=== PATIENT | female | born 1940 | race African-American/Black ===

== ENCOUNTER → 2017-03-18 | Outpatient (CLI) | payer OTHER, BC ==
[~2017-03-18] VITALS: Ht 157.5 cm; Wt 127.0 kg
[~2017-03-18] MED LIST: ATIVAN0.5 MG PO; FIORICET 50-301 EACH PO; FLEXERIL PO; GABAPENTIN 100100 MG PO; GABAPENTIN PO; GABAPENTIN100 MG PO; GABAPENTIN300 MG PO; HYDROCODON-ACE1 EAC5 PO; HYDROCODONE-AC120 ML PO; MECLIZINE 25 MG25 M1 PO; MEDROLDOSEPACK PO; NEURONTIN 300300 M1 PO; NORVASC 5 MG TAB5 MG PO; NORVASC10 MG PO; PREVACID 30MG C30 M1 PO; TRAMADOL 50 MG50 MG PO; VICODIN 5-5001 EACH PO; XARELTO15 MG PO; XARELTO20 MG PO; gabapentin PO
--- NOTE | ~2017-03-18 | HPC ---
[facility] [place] [address] [place] [address] PAIN MANAGEMENT CONSULTATION Name: TYSON SOLARES Room #: REG [facility].#: [id number] Admission: 03/18/17 Attend Phys: Allen Carlos MD Discharge: Date of : 42 Report #: [id number] THIS REPORT FOR: //name// CC: Boris Marti MD DATE OF SERVICE: 03/18/2017 FOLLOWUP COMPLAINT: Things are going pretty well. FOLLOWUP HISTORY: The patient is a very pleasant 76-year-old female who has been followed in the pain clinic because of lumbar radiculopathy. She finds that gabapentin is quite amazing medication. It helps her pain significantly. She has returned today for renewal of her medication. She rates her pain as a 5/10 at this juncture. She is experiencing pain down in both legs and in the lower back. She also has some left shoulder and right knee discomfort. She has had some medical problems since we have seen her last. She has not fallen. She has had her gallbladder removal. IMPRESSION: 1. Lumbar radiculopathy, improved with gabapentin 100 mg 1 p.o. t.i.d. 2. Obesity. Height 157 cm, weight 127 kilograms. BMI is 51. RECOMMENDATIONS: We discussed treatment options with the patient. We will continue with her use of gabapentin 100 mg 1 p.o. t.i.d. A script for these medications have been written. She will call us if she has any problems with her medications. We would like to thank you for letting us participate in her care. We hope she continues to improve. <ELECTRONICALLY SIGNED> By: Allen Carlos MD 03/25/17 0829 1219 1601 Allen Carlos MD /nt
[2017-03-18 11:27] VITALS: BP 150/76
== END | disposition home or self-care (01) ==
LOC: PAIN 10:52
DX: M54.16 Radiculopathy, lumbar region (principal); E66.9 Obesity, unspecified

== ENCOUNTER → 2017-08-19 | Outpatient (CLI) | payer OTHER, BC ==
[~2017-08-19] VITALS: Ht 157.5 cm; Wt 124.7 kg
--- NOTE | ~2017-08-19 | HPC ---
[facility] [place] [address] PAIN MANAGEMENT CONSULTATION Name: TYSON SOLARES Room #: REG [facility].#: [id number] Admission: 08/19/17 Attend Phys: Allen Carlos MD Discharge: Date of : 42 Report #: [id number] THIS REPORT FOR: //name// CC: Boris Marti MD DATE OF SERVICE: 08/19/2017 FOLLOWUP COMPLAINT: "I would like to get my medicines renewed and it still working well." FOLLOWUP HISTORY: The patient is a 76-year-old female who has been seen in the Pain Clinic because of lumbar radiculopathy. She is quite happy with the gabapentin. She finds that this medication is still helpful with decreasing her pain. She has had no complications from the medication. She would like to continue its use. She has had no complications with bowel or bladder dysfunction. She has not fallen since we saw her last. PHYSICAL EXAMINATION: Blood pressure 168/67, pulse 66, respiratory rate 18, room air saturation is 99%. Height 5 feet 2 inches, weight 275 pounds, BMI is 50. The patient has pain and discomfort, which radiates down into the posterior portion of her legs and has some low back pain. She has pain in her right knee. Notes increased pain and discomfort with walking, standing and prolonged sitting. IMPRESSION: 1. Lumbar radiculopathy, which has improved and helped significant weight with gabapentin 100 mg 1 p.o. t.i.d. 2. Obesity. BMI is 50. RECOMMENDATIONS: We will continue with the patient's current medical regimen. A script for gabapentin 100 mg 1 p.o. t.i.d. has been written. The patient will follow up in the near future. She will call us if she has any problems with her medications. We would like to thank you for letting us participate in her care. We hope she continues to improve. By: 1609 0357 Allen Carlos MD /CHAPARRO
[2017-08-19 10:17] VITALS: BP 168/67
== END | disposition home or self-care (01) ==
LOC: PAIN 07:18
DX: Z76.0 Encounter for issue of repeat prescription (principal); M54.16 Radiculopathy, lumbar region; G89.29 Other chronic pain; E66.09 Other obesity due to excess calories; Z68.43 Body mass index [BMI] 50.0-59.9, adult; Z88.2 Allergy status to sulfonamides; Z88.6 Allergy status to analgesic agent; Z88.8 Allergy status to other drugs, medicaments and biological substances; Z79.899 Other long term (current) drug therapy

== ENCOUNTER → 2018-01-16 | Outpatient (CLI) | payer OTHER, BC ==
[~2018-01-16] MED LIST changes: +FOSAMAX 70 MG T70 MG PO; +PHENERGAN 25 MG25 M1 PO; +PRED FORTE 1% EY5 M1 OPHTHALMIC; +PREVACID30 MG PO
== END ==
LOC: CAT 10:48
DX: H53.9 Unspecified visual disturbance (principal); R51 Headache; R53.1 Weakness

== ENCOUNTER → 2018-02-16 | Outpatient (CLI) | payer OTHER, BC ==
[~2018-02-16] MED LIST changes: -FOSAMAX 70 MG T70 MG PO; -PHENERGAN 25 MG25 M1 PO; -PRED FORTE 1% EY5 M1 OPHTHALMIC; -PREVACID30 MG PO
== END ==
LOC: RAD 13:42
DX: R06.00 Dyspnea, unspecified (principal)

== ENCOUNTER → 2018-02-22 | Outpatient (CLI) | payer OTHER, BC ==
[~2018-02-22] VITALS: Ht 157.5 cm; Wt 120.9 kg
--- NOTE | ~2018-02-22 | HPC ---
[facility] [place] [address] [address] [place] [address] PAIN MANAGEMENT CONSULTATION Name: TYSON SOLARES Room #: REG [facility]..#: [id number] Admission: 02/22/18 Attend Phys: Allen Carlos MD Discharge: Date of : 42 Report #: [id number] THIS REPORT FOR: //name// CC: Boris Marti MD DATE OF SERVICE: 02/22/2018 FOLLOWUP COMPLAINT: Here for medication renewal. FOLLOWUP HISTORY: The patient is a 77-year-old female who has been followed in the pain clinic for some time. She has pain and discomfort in the lower back area as well as noted some pain and discomfort in the upper shoulder area. Finds that the use of gabapentin over the years has been quite efficacious. She has noted some worsening of pain and discomfort in both shoulders. She has had the worst discomfort in the left shoulder. She has had no surgery in this area. Feels that maybe injections in the past have been beneficial and feels that that might be needed in the near future because of this. ALLERGIES: PROCAINAMIDE SULFA, CAFFEINE CAUSES HEART ARRHYTHMIAS. CURRENT MEDICATIONS: 1. Gabapentin 100 mg t.i.d. 2. Xarelto 20 mg at dinner. 3. Meclizine 25 mg p.r.n. 4. Prevacid 30 mg capsules daily. 5. Amlodipine/Norvasc 5 mg daily. 6. Ativan 0.5 mg b.i.d. PAIN CLINIC ASSESSMENT: 1. 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 2. Height 5 feet 2 inches, weight 266 pounds, BMI is 48. 3. VITAL SIGNS: Blood pressure 163/79, pulse 59, respiratory rate 14, room air saturation is 100%. 4. Pain intensity is 0 at this juncture with some activity levels. Notes increased pain and discomfort involving her left shoulder, which is problematic and noticing decreasing range of motion. 5. Fall risk. The patient has not fallen in the last 3 months, but does need some assistance with walking and uses a cane. 6. Blood thinner. The patient is on Xarelto. 7. History of hypertension. 8. Opioid therapy, use over the last 6 weeks. The patient is not using opioid medication. 9. Risk assessment, low at 11/28 for opioid medication. [address] [address] PAIN MANAGEMENT CONSULTATION Name: TYSON SOLARES [id number] Admission: 02/22/18 Attend Phys: Allen Carlos MD Discharge: Date of : 42 Report #: [id number] 10. Functional assessment tool, which shows moderate problems with her pain during the course of her daily living. 11. Recreational drug use. Never used recreational drugs. 12. Tobacco, never smoked cigarettes. 13. Alcohol. Denies frequent use of alcoholic beverages. PHYSICAL EXAMINATION: GENERAL: She is a well-developed black female. She appears her stated age. She is alert and oriented x 3. Affect is appropriate. Speech is smooth. She is accompanied by her daughter. HEENT: Normocephalic, atraumatic. Extraocular eye muscles intact. Hearing is within normal limits. Conjunctivae is clear. Mucous membranes are moist. NECK: Without adenopathy. HEART: Regular rate. ABDOMEN: Protuberant. MUSCULOSKELETAL: Upper extremity muscle strength is judged to be on the right 4+/5 and on the left 4+/5. Had some decreased range of motion in the left arm, raising this arm above the horizon with abduction is somewhat limited. The patient notes some pain and discomfort in this area. Lower extremities: The patient does have some pain and discomfort in the lumbar radicular area with certain activities. It is not problematic at this juncture and helped with use of gabapentin. IMPRESSION: 1. Lumbar radiculopathy, which improves with gabapentin. 2. Obesity, BMI is 48.7 down from 50 at the last visit. 3. Left arm pain and discomfort. RECOMMENDATIONS: We discussed treatment options with the patient. She states that she is having some pain and discomfort in the left arm. Has had some problems with rotator cuff in this area. The rotator cuff seems to be quite problematic. At this juncture, we will continue with a conservative approach. We may consider injecting the left shoulder/deltoid areas in the future for pain continues to be problematic. She will try a Medrol Dosepak. Hopefully, this medication would help some of the swelling and discomfort as well irritation she is experiencing in the left shoulder as she tries to increase her range of motion and activity level for that shoulder. A script for Medrol Dosepak and gabapentin 100 mg 1 p.o. t.i.d. have been written. A 5 refills were given for the gabapentin. She will call us if she has any problems. We would like to thank you for letting us participate in her care. We hope she continues to improve. By: 1712 0514 Allen Carlos MD /CHAPARRO
[2018-02-22 09:28] VITALS: BP 163/79
== END ==
LOC: PAIN 06:56
DX: M54.16 Radiculopathy, lumbar region (principal); E66.9 Obesity, unspecified; M79.602 Pain in left arm; Z68.42 Body mass index [BMI] 45.0-49.9, adult; Z88.4 Allergy status to anesthetic agent; Z88.2 Allergy status to sulfonamides; Z88.5 Allergy status to narcotic agent

== ENCOUNTER → 2018-03-08 | Outpatient (CLI) | payer OTHER, BC ==
[2018-03-11 13:56] LABS: T-SPOT.TB Negative
== END ==
LOC: RAD 09:04
PROVIDERS: Nurse Practitioner
DX: M47.894 Other spondylosis, thoracic region (principal); I27.20 Pulmonary hypertension, unspecified

== ENCOUNTER → 2018-03-20 | Outpatient (CLI) | payer OTHER, BC | LOC: ULTRA 10:27 | DX: M79.661 Pain in right lower leg (principal); M79.89 Other specified soft tissue disorders ==

== ENCOUNTER → 2018-03-23 | Outpatient (CLI) | payer OTHER, BC | LOC: NUC 06:31 | DX: M80.859 Other osteoporosis with current pathological fracture, unspecified femur (principal); Z78.0 Asymptomatic menopausal state ==

== ENCOUNTER 2018-08-03 09:50 | Observation (INO) | payer OTHER, BC ==
[2018-08-03] VITALS (11 sets, daily range): BP systolic 128–159; BP diastolic 54–80
--- NOTE | ~2018-08-03 | PATH ---
[facility] [address] [place] [address] PATHOLOGY RPT PROCEDURE Name: TYSON RENE Room #: 211-P [facility] Nadiya Hernandez#: [id number] Admission: 08/03/18 Date of : 42 Discharge: 08/03/18 Report #: [id number] Path Case #: [id number] [facility] Accession Number: [id number] . 01 Material submitted: . RIGHT FOCAL LIVER LESION . 01 Clinical history: . Right focal liver lesion . 02 Diagnosis: Liver, needle core biopsy: - Nodular liver parenchyma with multiple non-necrotizing and necrotizing granulomata associated with clusters of giant cells (please see comment). (IUV:gilmar; 08/08/2018) QMS/08/08/2018 . 02 Comment: Examination shows markedly expanded portal and periportal areas by extensive non-necrotizing and necrotizing granulomatous inflammation with clusters of giant cells. Occasional to rare giant cells show an inclusion. Few granulomata resemble "fibrin-ring" granulomas. Central expanded stellate areas of necrosis suggesting cat scratch disease are not identified. Bile ducts where present and available for examination appear uninvolved. The arteries and veins where present are uninvolved. The lobules show less than 2% macrovesicular steatosis. Mild sinusoidal congestion is present. Florid duct lesions are not present. . Acid fast bacillus and Gomori methenamine silver stains performed on block A1 are negative for mycobacterial as well as fungal elements, respectively. . Special stains are performed on block A1. Trichrome special stain shows extensive periportal fibrosis (stage II-III/IV). Reticulin stain shows an intact reticulum network where the lobules are intact. Iron stain is negative. PAS with and without show numerous Kupffer cells as well as no intracytoplasmic globules in zone 1. CD34 immunohistochemical stain performed on block A1 shows no increase in vascularity. . The differential diagnosis in the current case includes sarcoidosis, primary biliary cirrhosis, effects of medications (drugs), tuberculosis (including SAM), foreign material (mineral oil), Q fever, cat scratch disease, as well as parasitic organisms. Please correlate clinically and follow-up as indicated. (IUV:gilmar; 08/08/2018) . 02 Electronically signed: . Theodora Ascencio MD, [place] [address] PATHOLOGY RPT PROCEDURE Name: TYSON RENE Room #: 211-P [facility] Hernandez#: [id number] Admission: 08/03/18 Date of : 42 Discharge: 08/03/18 Report #: [id number] Path Case #: [id number] NPI- [id number] . 01 Gross description: . The specimen is received in formalin, labeled "Tyson Rene, liver-right". Received are five needle cores of orange-bruno soft tissue ranging in length from 0.4 to 2.7 cm, with each measuring 0.1 cm in length. The specimen is submitted entirely in cassettes A1 through A3. (CAA; 08/04/2018) QAC/QAC . 02 Pathologist provided ICD-10: K75.3, K76.9 . 02 CPT . 153441, 263914, 193059, 609301, 995039, 716479, 066629, 241815, J04804 Specimen Comment: A courtesy copy of this report has been sent to Specimen Comment: [phone], . Specimen Comment: Report sent to / DR MCGUIRE Performed at: [address] [facility], [place] [id number] MD Kingsley Waters MD Phone: [phone] Performed at: [address] [id number] MD Theodora Ascencio MD Phone: [phone]
[2018-08-03] MEDS ORDERED: FOSAMAX 70 MG T70 MG PO (11:29)
[2018-08-03 12:50] LABS: HEMATOCRIT 35.1 % (37.0-47.0); HEMOGLOBIN 11.6 gm/dL (12.0-15.0); MCH 28.2 pg (26.0-34.0); MCHC 32.9 g/dL (28.0-37.0); MCV 85.7 fL (80.0-100.0); RBC 4.1 mil/uL (4.20-5.00); WBC 2.5 thou/uL (4.0-11.0)
[2018-08-03 13:00] LABS: CALCIUM 9.3 mg/dL (8.5-10.1); CREATININE 0.9 mg/dL (0.6-1.0); POTASSIUM 3.8 mmol/L (3.5-5.1)
[2018-08-03 13:06] LABS: INR 1.1; PROTIME 10.9 Seconds (9.3-11.4)
== END 2018-08-03 18:52 | disposition home or self-care (01) ==
LOC: ULTRA 09:50 → 2N 15:57
PROVIDERS: Radiology Diagnostic Radiology
DX: K76.9 Liver disease, unspecified (principal); K75.3 Granulomatous hepatitis, not elsewhere classified; I10 Essential (primary) hypertension; I25.10 Atherosclerotic heart disease of native coronary artery without angina pectoris; I27.20 Pulmonary hypertension, unspecified; E66.9 Obesity, unspecified; K21.9 Gastro-esophageal reflux disease without esophagitis; G47.33 Obstructive sleep apnea (adult) (pediatric); F41.9 Anxiety disorder, unspecified; R51 Headache
CPT/HCPCS: 27001

== ENCOUNTER 2018-09-06 05:32 | Day surgery (SDC) | payer OTHER, BC ==
[~2018-09-06] VITALS: Ht 157.5 cm; Wt 116.6 kg
--- NOTE | ~2018-09-06 | H ---
[facility] [place] [address] [place] [address] HISTORY AND PHYSICAL Name: TYSON SOLARES Room #: 150-5 [facility]..#: [id number] Admission: 09/06/18 Attend Phys: James Brasher MD Discharge: Date of : 42 Report #: [id number] THIS REPORT FOR: //name// CC: Alex Brasher DATE OF SERVICE: 09/06/2018 DATE OF SURGERY: 09/06/2018 HISTORY OF PRESENT ILLNESS: This patient is a 77-year-old female, 3, para 2, AB 1. She is a patient of Dr. Alex Marti who referred the patient to Dr. Brasher for further evaluation of low density changes in the upper central uterus on CT scan requiring endometrial evaluation. These abnormalities were found on 06/28/2018 posing a concern for endometrial tumor or retained fluid in the upper uterine area. An endometrial biopsy was attempted in the office by Dr. Brasher, but was unsuccessful due to cervical stenosis. She is now admitted for an outpatient D and C, hysteroscopy. The patient has multiple medical problems including coronary artery disease, hypertension, mitral valve prolapse, obstructive sleep apnea, sarcoidosis, pulmonary hypertension and history of a saddle pulmonary embolus. She is being treated with Xarelto anticoagulation. This was to have been discontinued 5 days prior to surgery as per Dr. Alex Marti's recommendation and is to be restarted 2 days after the surgery. PAST MEDICAL HISTORY: ALLERGIES: PROCAINE, MORPHINE, PROCAINAMIDE, SULFA ANTIBIOTICS. MEDICATIONS: Amlodipine, also known as Norvasc 5 mg tablets; Lotrisone vaginal cream to affected area twice a day; gabapentin 100 mg p.o. t.i.d.; lansoprazole 30 mg p.o. daily; lorazepam 0.5 mg p.o. b.i.d.; meclizine 25 mg p.o. p.r.n.; prednisolone acetate eyedrops q.a.m. Tuesday through Tuesday; Xarelto 20 mg once daily with dinner. MEDICAL ILLNESSES AND DISEASES: Coronary artery disease, hypertension, mitral valve prolapse, obstructive sleep apnea, pulmonary hypertension, past history of saddle pulmonary embolus, sarcoidosis, uterine fibroid, vertigo, anxiety, MISSY positive, chronic headaches, GERD. PAST SURGICAL HISTORY: Cholecystectomy, herniorrhaphy, liver biopsy, mastoidectomy, total knee replacement. FAMILY HISTORY: Father with a myocardial infarction. Diabetes, hypertension and heart disease runs in the family. [address] [address] HISTORY AND PHYSICAL Name: TYSON SOLARES Room #: 150-5 [facility]#: [id number] Admission: 09/06/18 Attend Phys: James Brasher MD Discharge: Date of : 42 Report #: [id number] SOCIAL HISTORY: Never smoker. Denies alcohol use. REVIEW OF SYSTEMS: EYES: Wears glasses. PSYCHIATRIC: Denies depression. GENERAL: Denies any general symptoms of fatigue. Does admit to sleep apnea. RESPIRATORY: Denies any wheezing or coughing. CARDIAC: Denies any irregular heartbeats or chest pain. GASTROINTESTINAL: Denies any abdominal pain or distress. GENITOURINARY: Denies any burning when she urinates or blood in her urine. PHYSICAL EXAMINATION: VITAL SIGNS: Temperature 98.6, pulse 64, blood pressure 110/64, height 5 feet 1 inch tall, weight 265 pounds, body mass index is 50.07. GENERAL: The patient is pleasant, in no acute distress, but morbidly obese. HEENT: Head: Atraumatic. Eyes: Normal. Ears: Normal. NECK: Nontender. Full range of motion. LUNGS: Clear. HEART: Regular rhythm and rate. No murmurs. ABDOMEN: Soft, nontender, pendulous with a large pannus. SKIN: No petechiae or rashes. BACK: No midline or flank tenderness. EXTREMITIES: No edema. NEUROLOGIC: Awake and alert. PSYCHIATRIC: Normal mood and affect. GYNECOLOGIC: Vulva normal. Vagina normal with no masses, no lesions. Cervix parous, nontender. Uterus and adnexa are nontender and nonpalpable. ASSESSMENT: 1. Abnormal low density changes in the endometrial cavity of the uterus on CT scan requiring endometrial evaluation. 2. Cervical stenosis preventing endometrial biopsy. 3. Morbid obesity, past history of pulmonary embolus for which the patient receives anticoagulation with Xarelto. 4. Multiple medical problems including coronary artery disease, mitral valve prolapse, obstructive sleep apnea, sarcoidosis, pulmonary hypertension and a history of saddle pulmonary embolus and morbid obesity. PLAN: Dilation and curettage, hysteroscopy scheduled for 09/07/2018. The [address] [address] HISTORY AND PHYSICAL Name: TYSON SOLARES Room #: 150-5 [facility] M.R.#: [id number] Admission: 09/06/18 Attend Phys: James Brasher MD Discharge: Date of : 42 Report #: [id number] patient is to have discontinued Xarelto anticoagulation 5 days prior to surgery and we will restart it 2 days following surgery. <ELECTRONICALLY SIGNED> By: James Brasher MD 09/06/18 0742 1801 1837 James Brasher MD /nt
--- NOTE | ~2018-09-06 | O ---
[facility] [place] [place] [address] OPERATIVE REPORT Name: TYSON SOLARES Room #: DEP [facility]..#: [id number] Admission: 09/06/18 Attend Phys: James Brasher MD Discharge: 09/06/18 Date of : 42 Report #: [id number] THIS REPORT FOR: //name// CC: Alex Brasher DATE OF SERVICE: 09/06/2018 PREOPERATIVE DIAGNOSIS: Thickened endometrium. POSTOPERATIVE DIAGNOSIS: Thickened endometrium. PROCEDURE: Dilatation and curettage, hysteroscopy. SURGEON: James Brasher MD BLACK TOP RAKER: None. ANESTHESIA: General. ESTIMATED BLOOD LOSS: 5 mL. DRAINS: None. SPECIMEN: Endometrial curettings. FINDINGS: Exam under anesthesia was performed. Uterus and adnexa were nonpalpable due to abdominal girth. The hysteroscopic findings showed minimally thickened endometrium with no evidence of any endometrial submucosal fibroids or endometrial polyps. Curettings were scant on the curettage of the uterus. COMPLICATIONS: None. PROCEDURE: The patient was seen in preoperative holding area, where consent was obtained for surgery. The postoperative course was reviewed. The patient was reminded to restart Xarelto on postop day #1 if she is not having any bleeding from the surgery. She was then taken to the operating room, administered general anesthesia, prepped and draped in sterile fashion in dorsal lithotomy position. The patient is morbidly obese and pelvic exam was unable to palpate the uterus and adnexa. Speculum was placed in the vagina. Cervix was grasped using a single-tooth tenaculum along the anterior lip and hysteroscope could not be inserted past the internal os due to cervical stenosis. A uterine sound was passed and sounded the uterus to a depth of 7.5 cm. Dilators were used to dilate the endocervical canal until the hysteroscope could be inserted under direct hysteroscopic vision using saline distending medium. Hysteroscopic [facility] [address] [place] [address] OPERATIVE REPORT Name: TYSON SOLARES [place] Room #: [facility]#: [id number] Admission: 09/06/18 Attend Phys: James Brasher MD Discharge: 09/06/18 Date of : 42 Report #: [id number] findings were as dictated above. The hysteroscope was removed. The uterine cervix then dilated to #21 dilator. A smooth sharp curette was then used to obtain endometrial curettings in the entirety of the endometrial cavity. These curettings were scant and the hysteroscope was then reinserted and fluid was infused. There was no active bleeding in the endometrial cavity. The hysteroscope was then removed. The single-tooth tenaculum was then removed. Hemostasis was observed. The patient was then brought out of general anesthesia and taken to the recovery room with IV infusing well. She was to be discharged home directly from recovery room again with instructions to resume Xarelto the day following surgery if she is not bleeding vaginally. If she is bleeding vaginally, she is to call Dr. Brasher. By: 1115 1247 James Brasher MD /nt
--- NOTE | ~2018-09-06 | PATH ---
[facility] [place] [address] PATHOLOGY RPT PROCEDURE Name: TYSON RENE Room #: DEP [facility] M.R.#: [id number] Admission: 09/06/18 Date of : 44 Discharge: 09/06/18 Report #: [id number] Path Case #: [id number] [facility] Accession Number: [id number] . 01 Material submitted: . ENDOMETRIAL CURETTING . 01 Clinical history: . Endometrial disorder . 02 Diagnosis: Uterus, endometrial curetting: - Scant specimen procured. - Fragments of inactive (atrophic) endometrium with cystic change. - Negative for hyperplasia, atypia or malignancy within the endometrium. - Strips of benign ectocervical epithelium with no evidence of dysplasia. . (IUV:pit 09/07/2018) QTP/09/07/2018 . 02 Electronically signed: . Theodora Ascencio MD, Pathologist NPI- [id number] . 01 Gross description: . Received in formalin labeled "Tyson Rene, endometrial curettings," is blood-tinged mucoid material containing small fragments of bruno membranous tissue, measuring 0.3 x 0.2 x 0.1 cm in aggregate dimensions. The specimen is submitted entirely in cassette A1. (TSD; 09/06/2018) TOB/TOB . 02 Pathologist provided ICD-10: N85.8 . 02 CPT . 390698 Specimen Comment: A courtesy copy of this report has been sent to Specimen Comment: [phone], . Specimen Comment: Report sent to / DR STEIN Specimen Comment: A duplicate report has been generated due to demographic updates. Performed at: [address] [id number] MD Kingsley Waters MD Phone: [phone] Performed at: [address] [address] PATHOLOGY RPT PROCEDURE Name: TYSON RENE Room #: DEP [facility]..#: [id number] Admission: 09/06/18 Date of : 44 Discharge: 09/06/18 Report #: [id number] Path Case #: [id number] [address] [id number] MD Theodora Ascencio MD Phone: [phone]
[~2018-09-06 05:32] MED LIST changes: +FOSAMAX 70 MG T70 MG PO; +PRED FORTE 1% EY5 M1 OPHTHALMIC; +PREVACID30 MG PO
[2018-09-06 08:06] VITALS: BP 132/55
[2018-09-06 09:47] LABS: HEMATOCRIT 35.3 % (37.0-47.0); HEMOGLOBIN 11.7 gm/dL (12.0-15.0); MCH 28.9 pg (26.0-34.0); MCV 87.6 fL (80.0-100.0); RBC 4.03 mil/uL (4.20-5.00); RDW 15.3 % (10.5-14.5); WBC 3.4 thou/uL (4.0-11.0)
[2018-09-06 09:57] LABS: CALCIUM 9.2 mg/dL (8.5-10.1); CREATININE 0.9 mg/dL (0.6-1.0)
[2018-09-06 09:58] LABS: INR 1.1; PROTIME 11.1 Seconds (9.3-11.4)
[2018-09-06 10:02] LABS: ALBUMIN 2.8 g/dL (3.4-5.0); TOTAL BILIRUBIN 0.4 mg/dL (<0.1-1.0); TOTAL PROTEIN 7.7 g/dL (6.4-8.2)
[2018-09-06 11:13] VITALS: BP 132/55
== END 2018-09-06 11:48 | disposition home or self-care (01) ==
LOC: TBA 05:32 → OR 05:32
PROVIDERS: Student in an Organized Health Care Education/Training Program
DX: R93.89 Abnormal findings on diagnostic imaging of other specified body structures (principal); I25.10 Atherosclerotic heart disease of native coronary artery without angina pectoris; I10 Essential (primary) hypertension; I34.1 Nonrheumatic mitral (valve) prolapse; G47.33 Obstructive sleep apnea (adult) (pediatric); D86.9 Sarcoidosis, unspecified; I27.20 Pulmonary hypertension, unspecified; F41.9 Anxiety disorder, unspecified; K21.9 Gastro-esophageal reflux disease without esophagitis; E66.01 Morbid (severe) obesity due to excess calories; Z68.42 Body mass index [BMI] 45.0-49.9, adult; Z88.8 Allergy status to other drugs, medicaments and biological substances; Z88.1 Allergy status to other antibiotic agents; Z88.2 Allergy status to sulfonamides; Z79.899 Other long term (current) drug therapy; Z79.01 Long term (current) use of anticoagulants; Z90.49 Acquired absence of other specified parts of digestive tract; Z90.10 Acquired absence of unspecified breast and nipple; Z96.652 Presence of left artificial knee joint; Z82.49 Family history of ischemic heart disease and other diseases of the circulatory system; Z83.3 Family history of diabetes mellitus; Z98.42 Cataract extraction status, left eye; Z98.41 Cataract extraction status, right eye
CPT/HCPCS: 27000; 50010; 50101; 57160; 62110; 62900; 70005

== ENCOUNTER 2018-09-17 13:05 | Emergency (ER) | payer OTHER, BC ==
[~2018-09-17] VITALS: Ht 157.5 cm; Wt 117.5 kg
[2018-09-17] MEDS ORDERED: PHENERGAN 25 MG25 M1 PO (15:03)
[2018-09-17 15:24] VITALS: BP 149/59
== END 2018-09-17 15:25 | disposition home or self-care (01) ==
LOC: ER 13:05
DX: R51 Headache (principal); R11.0 Nausea; I10 Essential (primary) hypertension; I25.10 Atherosclerotic heart disease of native coronary artery without angina pectoris; K21.9 Gastro-esophageal reflux disease without esophagitis; G47.30 Sleep apnea, unspecified; Z96.652 Presence of left artificial knee joint; Z88.2 Allergy status to sulfonamides; Z88.5 Allergy status to narcotic agent; Z88.8 Allergy status to other drugs, medicaments and biological substances

== ENCOUNTER → 2019-02-26 | Outpatient (CLI) | payer OTHER, BC ==
[~2019-02-26] MED LIST changes: +PHENERGAN 25 MG25 M1 PO
[2019-02-26 10:01] LABS: CREATININE 0.9 mg/dL (0.6-1.0)
== END ==
LOC: CAT 09:09
PROVIDERS: Internal Medicine
DX: D86.9 Sarcoidosis, unspecified (principal); J98.4 Other disorders of lung; Z88.8 Allergy status to other drugs, medicaments and biological substances; Z88.5 Allergy status to narcotic agent; Z88.2 Allergy status to sulfonamides; Z79.899 Other long term (current) drug therapy

== ENCOUNTER 2020-10-28 11:19 | Emergency (ER) | payer OTHER, BC ==
[~2020-10-28] VITALS: Ht 157.5 cm; Wt 142.9 kg
[2020-10-28 14:50] LABS: ABSOLUTE NEUTROPHILS 2.1 thou/uL (1.4-8.2); BASOPHILS 0.4 % (0.0-2.0); EOSINOPHILS 3.3 % (0.0-3.0); HEMATOCRIT 37.9 % (37.0-47.0); HEMOGLOBIN 12.7 gm/dL (12.0-15.0); LYMPHOCYTES 33.3 % (24.0-44.0); MCH 30.2 pg (26.0-34.0); MCHC 33.4 g/dL (28.0-37.0); MCV 90.4 fL (80.0-100.0); MONOCYTES 10.7 % (1.0-8.0); POLYS 52.3 % (36.0-66.0); RBC 4.19 mil/uL (4.20-5.00)
[2020-10-28 15:00] LABS: CALCIUM 9.8 mg/dL (8.5-10.1); CREATININE 0.8 mg/dL (0.6-1.0); POTASSIUM 4.5 mmol/L (3.5-5.1)
[2020-10-28 15:22] LABS: ANISOCYTOSIS 1+
[2020-10-28 15:23] LABS: LARGE PLATELETS OCCASIONAL
[2020-10-28 15:42] VITALS: BP 176/78
[2020-10-28 15:43] LABS: PLATELET COUNT 145 thou/uL (150-400)
== END 2020-10-28 15:42 | disposition home or self-care (01) ==
LOC: ER 11:19
PROVIDERS: Nurse Practitioner
DX: T78.40XA Allergy, unspecified, initial encounter (principal); K21.9 Gastro-esophageal reflux disease without esophagitis; I10 Essential (primary) hypertension; I25.10 Atherosclerotic heart disease of native coronary artery without angina pectoris; Z90.49 Acquired absence of other specified parts of digestive tract; Z79.899 Other long term (current) drug therapy; Z88.2 Allergy status to sulfonamides; Z88.5 Allergy status to narcotic agent; Z88.8 Allergy status to other drugs, medicaments and biological substances; Y92.89 Other specified places as the place of occurrence of the external cause

== ENCOUNTER → 2021-06-03 | Outpatient (CLI) | payer OTHER, BC ==
[2021-06-03 11:11] LABS: BASOPHILS 0.3 % (0.0-2.0); EOSINOPHILS 11.8 % (0.0-3.0); HEMATOCRIT 41.7 % (37.0-47.0); HEMOGLOBIN 13.9 gm/dL (12.0-15.0); LYMPHOCYTES 34.3 % (24.0-44.0); MCH 30.5 pg (26.0-34.0); MCHC 33.4 g/dL (28.0-37.0); MCV 91.2 fL (80.0-100.0); MONOCYTES 9.8 % (1.0-8.0); PLATELET COUNT 127 thou/uL (150-400); POLYS 43.8 % (36.0-66.0); RBC 4.57 mil/uL (4.20-5.00); RDW 14.6 % (10.5-14.5); WBC 4.6 thou/uL (4.0-11.0)
[2021-06-03 12:10] LABS: ALBUMIN 3.4 g/dL (3.4-5.0); CALCIUM 9.2 mg/dL (8.5-10.1); CREATININE 0.8 mg/dL (0.6-1.0); POTASSIUM 4.8 mmol/L (3.5-5.1); TOTAL BILIRUBIN 0.8 mg/dL (0.2-1.0); TOTAL PROTEIN 8.1 g/dL (6.4-8.2)
== END ==
LOC: CAT 10:19
PROVIDERS: ATTEND Nurse Practitioner
DX: K57.30 Diverticulosis of large intestine without perforation or abscess without bleeding (principal); I70.8 Atherosclerosis of other arteries; Z90.49 Acquired absence of other specified parts of digestive tract

== ENCOUNTER → 2021-06-11 | Outpatient (CLI) | payer OTHER, BC | LOC: RAD 07:39 | PROVIDERS: ATTEND Internal Medicine | DX: D86.9 Sarcoidosis, unspecified (principal) ==

== ENCOUNTER 2022-01-18 12:00 | Emergency (ER) | payer OTHER, BC ==
[~2022-01-18] VITALS: Ht 157.5 cm; Wt 126.1 kg
[2022-01-18 13:06] LABS: ABSOLUTE NEUTROPHILS 1.5 thou/uL (1.4-8.2); BASOPHILS 1.1 % (0.0-2.0); EOSINOPHILS 3.2 % (0.0-3.0); HEMATOCRIT 37.4 % (37.0-47.0); HEMOGLOBIN 12.4 gm/dL (12.0-15.0); LYMPHOCYTES 53.5 % (24.0-44.0); MCH 30.3 pg (26.0-34.0); MCHC 33.2 g/dL (28.0-37.0); MCV 91.2 fL (80.0-100.0); MONOCYTES 7.9 % (1.0-8.0); PLATELET COUNT 184 thou/uL (150-400); POLYS 34.3 % (36.0-66.0); RDW 14.6 % (10.5-14.5); WBC 4.5 thou/uL (4.0-11.0)
[2022-01-18 13:07] LABS: CALCIUM 9.5 mg/dL (8.5-10.1); CREATININE 0.9 mg/dL (0.6-1.0); POTASSIUM 4.1 mmol/L (3.5-5.1)
[2022-01-18 13:13] LABS: ALBUMIN 3.3 g/dL (3.4-5.0); TOTAL BILIRUBIN 0.6 mg/dL (0.2-1.0); TOTAL PROTEIN 7.9 g/dL (6.4-8.2)
[2022-01-18 14:44] VITALS: BP 106/61
== END 2022-01-18 14:53 | disposition home or self-care (01) ==
LOC: ER 12:00
PROVIDERS: Nurse Practitioner
DX: R13.10 Dysphagia, unspecified (principal); F41.9 Anxiety disorder, unspecified; I10 Essential (primary) hypertension; K21.9 Gastro-esophageal reflux disease without esophagitis; Z90.49 Acquired absence of other specified parts of digestive tract; Z79.899 Other long term (current) drug therapy; Z88.2 Allergy status to sulfonamides; Z91.040 Latex allergy status; Z88.5 Allergy status to narcotic agent